=== PATIENT | male | born 1955 | race Caucasian/White ===

== ENCOUNTER → 2017-07-12 19:33 | Outpatient (CLI) | payer OTHER, SELFPAY ==
[2017-07-12 20:03] LABS: Erythrocyte Sedimentation Rate 1 mm/hr (0-20)
[2017-07-12 20:16] LABS: CRP < 2.90 mg/L (0.0-3.0)
[2017-07-12 20:17] LABS: Vitamin B12 385 pg/mL (211-911)
== END ==
PROVIDERS: Family Provider Family Medicine; PCP Family Medicine; Visit Provider Family Medicine
DX: R42 Dizziness and giddiness (principal); E55.9 Vitamin D deficiency, unspecified
CPT/HCPCS: 82306; 82607; 84403; 85652; 86140

== ENCOUNTER → 2017-07-27 10:39 | Outpatient (CLI) | payer OTHER, SELFPAY ==
--- NOTE | 2017-07-27 10:42 | CDU_ITS ---
Reason For Study: DIZZINESS Rt. Velocities/BP Lt. Velocities/BP Prox CCA 132.0/24.4 cm/sec. Prox CCA 114.0/18.2 cm/sec. Mid CCA 125.0/21.2 cm/sec. Mid CCA 102.0/19.3 cm/sec. Dist CCA 101.0/18.9 cm/sec. Dist CCA 112.0/20.5 cm/sec. Prox ICA 62.1/13.4 cm/sec. Prox ICA 62.7/21.7 cm/sec. Mid ICA 53.0/17.2 cm/sec. Mid ICA 82.1/27.6 cm/sec. Dist ICA 67.6/21.6 cm/sec. Dist ICA 91.5/24.6 cm/sec. Rt. ICA/CCA = .54. Lt. ICA/CCA = .90. Prox ECA 119.0/19.6 cm/sec. Prox ECA 114.0/17.6 cm/sec. Rt. Vert. 42.8/13.0 cm/sec. Lt. Vert. 41.6/15.2 cm/sec. Right Extracranial There is intimal thickening but no significant atherosclerotic plaque noted in the right common carotid artery. There is intimal thickening but no significant atherosclerotic plaque noted in the right internal carotid artery. There is no significant atherosclerotic plaque noted in the right external carotid artery. Antegrade flow is noted in the right vertebral artery. There is heterogeneous, smooth atherosclerotic plaque noted in the right bulb. Left Extracranial There is intimal thickening but no significant atherosclerotic plaque noted in the left common carotid artery. There is intimal thickening but no significant atherosclerotic plaque noted in the left internal carotid artery. There is no significant atherosclerotic plaque noted in the left external carotid artery. Antegrade flow is noted in the left vertebral artery. Procedure Carotid Duplex [id number]. Exam performed in department. Interpretation Summary No significant atherosclerotic plaque or stenosis noted in the internal carotid arteries bilaterally. Flow within the vertebral arteries is antegrade bilaterally. Ordering Physician: Jimbo Dean Referring Physician: Jimbo Dean Performed By: Carrol Campbell RVT
== END ==
PROVIDERS: Family Provider Family Medicine; PCP Family Medicine; Visit Provider Family Medicine
DX: R42 Dizziness and giddiness (principal)
CPT/HCPCS: 93880

== ENCOUNTER → 2017-10-31 17:13 | Outpatient (CLI) | payer SELFPAY ==
[2017-10-31 17:44] LABS: Erythrocyte Sedimentation Rate 1 mm/hr (0-20)
[2017-10-31 17:53] LABS: CRP < 2.90 mg/L (0.0-3.0)
== END ==
DX: M06.4 Inflammatory polyarthropathy (principal)
CPT/HCPCS: 85652; 86140

== ENCOUNTER → 2018-04-09 12:26 | Outpatient (CLI) | payer OTHER, SELFPAY ==
[2018-04-09 12:46] LABS: Erythrocyte Sedimentation Rate 3 mm/hr (0-20)
[2018-04-09 13:03] LABS: CRP < 2.90 mg/L (0.0-3.0)
== END ==
PROVIDERS: Family Provider Family Medicine; PCP Family Medicine
DX: M06.4 Inflammatory polyarthropathy (principal)
CPT/HCPCS: 85652; 86140

== ENCOUNTER → 2020-06-01 09:45 | Outpatient (CLI) | payer OTHER, SELFPAY ==
--- NOTE | 2020-06-01 16:25 | RAD_ITS ---
STUDY: X-RAY - ABDOMEN/PELVIS REASON FOR EXAM: Male, 64 years old. abdominal pain right side goes around to posterior TECHNIQUE: AP supine and upright views of the abdomen and pelvis. COMPARISON: None. FINDINGS: Normal visualized lung bases. There is an unremarkable bowel gas pattern. There is no demonstrated free abdominal air. The visualized liver, spleen and kidneys are grossly normal in size and morphology. Normal soft tissue structures. Normal visualized osseous structures. RAD/Abd Inc Decub and/or Erect IMPRESSION: No definite acute or significant abnormality seen. Electronically Signed: Arsen Lemos MD at 17:16 EST , Service support ,
[2020-06-01 18:03] LABS: Absolute Lymphocyte Count 1.34 X10^3/uL (0.83-4.51); Absolute Neutrophil Count 3.2 X10^3/uL (2.0-7.7); Basophil# 0.04 X10^3/uL; Basophil% 0.8 % (0-1); Eosinophil# 0.17 X10^3/uL; Eosinophils% 3.2 % (0-5); Hematocrit 45.1 % (40-54); Hemoglobin 15.5 g/dL (13.0-16.5); Lymphocyte # 1.34 X10^3/ul (4.0); Lymphocyte % 25.4 % (19-41); Mean Corp Hgb Conc 34.4 g/dL (32-36); Mean Corpuscular Hgb 31.5 pg (27.0-32.0); Mean Corpuscular Volume 91.7 fL (80-94); Mean Platelet Vol. 10.6 fl (6.2-12.0); Monocyte# 0.52 X10^3/uL; Monocyte% 9.8 % (0-10); NRBC Flagged by Analyzer 0 % (0-5); Neutrophil % 60.6 % (47-70); Platelet Count 271 K/mm3 (150-450); RBC Distribution Width CV 12.8 % (11.6-14.6); Red Blood Count 4.92 M/mm3 (4.6-6.2); White Blood Count 5.3 K/mm3 (4.4-11.0)
[2020-06-01 18:18] LABS: Erythrocyte Sedimentation Rate 7 mm/hr (0-20)
[2020-06-01 18:31] LABS: ALB/GLOB Ratio 1.3 RATIO (0.9-2.4); AST(SGOT) 26 U/L (15-37); Alanine Aminotransfer ALT/SGPT 42 U/L (16-61); Albumin, Serum 3.9 g/dL (3.2-5.0); Alkaline Phosphatase 81 U/L (45-117); Anion Gap 7 (5-15); BUN 19 mg/dL (7-18); BUN/Creat Ratio 15.7 RATIO (10-20); Calcium,Total 9.1 mg/dL (8.5-10.1); Chloride 106 mmol/L (98-107); Creatinine, Serum 1.21 mg/dL (0.70-1.30); EST Glomerular Filtration Rate 64 mL/min (>60); Est Glom Filt Rate - Afr Amer 77 mL/min (>60); Globulin 3.1 g/dL (2.2-4.2); Glucose 92 mg/dL (74-106); Potassium 4.1 mmol/L (3.5-5.1); Sodium Level 139 mmol/L (136-145)
[2020-06-04 03:07] LABS: Almond <0.10 kU/L (Class 0); Apple <0.10 kU/L (Class 0); Banana <0.10 kU/L (Class 0); Barley, Whole Grain <0.10 kU/L (Class 0); Beef <0.10 kU/L (Class 0); Brazil Nut <0.10 kU/L (Class 0); Carrot <0.10 kU/L (Class 0); Cashew <0.10 kU/L (Class 0); Chicken <0.10 kU/L (Class 0); Clam <0.10 kU/L (Class 0); Codfish <0.10 kU/L (Class 0); Corn <0.10 kU/L (Class 0); Egg, White <0.10 kU/L (Class 0); Egg, Whole <0.10 kU/L (Class 0); Egg, Yolk <0.10 kU/L (Class 0); Garlic <0.10 kU/L (Class 0); Gluten <0.10 kU/L (Class 0); Hazelnut/Filbert <0.10 kU/L (Class 0); Milk (Cow) 0.14 kU/L (Class 0/I); Oat <0.10 kU/L (Class 0); Onion <0.10 kU/L (Class 0); Orange <0.10 kU/L (Class 0); Pea <0.10 kU/L (Class 0); Peanut <0.10 kU/L (Class 0); Pecan <0.10 kU/L (Class 0); Pork <0.10 kU/L (Class 0); Potato, White <0.10 kU/L (Class 0); Rice <0.10 kU/L (Class 0); SCALLOP <0.10 kU/L (Class 0); SESAME SEED <0.10 kU/L (Class 0); Salmon <0.10 kU/L (Class 0); Shrimp <0.10 kU/L (Class 0); Soybean <0.10 kU/L (Class 0); Strawberry <0.10 kU/L (Class 0); Tomato <0.10 kU/L (Class 0); Tuna <0.10 kU/L (Class 0); Walnut, (Food) <0.10 kU/L (Class 0); Wheat <0.10 kU/L (Class 0); Yeast <0.10 kU/L (Class 0)
[2020-06-04 08:18] LABS: Turkey <0.10 kU/L (Class 0)
== END ==
PROVIDERS: PCP Family Medicine; Referring Provider Otolaryngology Otolaryngology/Facial Plastic Surgery; Visit Provider Otolaryngology Otolaryngology/Facial Plastic Surgery
DX: T78.40XA Allergy, unspecified, initial encounter (principal); R10.9 Unspecified abdominal pain
CPT/HCPCS: 36415; 74019; 80053; 85025; 85652; 86003; 87086; 87088

== ENCOUNTER → 2024-09-09 | Outpatient (CLI) | payer OTHER, SELFPAY ==
--- NOTE | 2024-09-09 07:43 | EKG12_ITS ---
Test Reason : PRE OP Blood Pressure : */* mmHG Vent. Rate : 56 BPM Atrial Rate : 56 BPM P-R Int : 188 ms QRS Dur : 78 ms QT Int : 428 ms P-R-T Axes : 65 54 57 degrees QTcB Int : 413 ms Sinus bradycardia Otherwise normal ECG Confirmed by BRISEYDA BRAVO, EDVIN ([id number]), fashion editor DEBORAH OLMEDO ([id number]) on 09/09/2024 11:42:02 AM Referred By: [employer]una Confirmed By: EDVIN RAIN MD
[2024-09-09 08:52] LABS: Hematocrit 42.9 % (40-54); Hemoglobin 14.3 g/dL (13.0-16.5); Mean Corp Hgb Conc 33.3 g/dL (32-36); Mean Corpuscular Hgb 30.6 pg (27.0-32.0); Mean Corpuscular Volume 91.7 fL (80-94); Platelet Count 321 K/mm3 (150-450); RBC Distribution Width SD 43.6 fl (35.1-43.9); Red Blood Count 4.68 M/mm3 (4.6-6.2); White Blood Count 5.1 K/mm3 (4.4-11.0)
[2024-09-09 09:54] LABS: Anion Gap 15 (5-15); BUN 16 mg/dL (4-19); BUN/Creat Ratio 14.2 RATIO (10-20); Carbon Dioxide 18.2 mmol/L (21.0-32.0); Chloride 107 mmol/L (98-108); Creatinine, Serum 1.14 mg/dL (0.70-1.20); EST Glomerular Filtration Rate 69 (>60); Glucose 129 mg/dL (70-99); Sodium Level 140 mmol/L (133-145)
== END | disposition home or self-care (01) ==
PROVIDERS: PCP Family Medicine; Referring Provider Otolaryngology; Visit Provider Otolaryngology
DX: Z01.810 Encounter for preprocedural cardiovascular examination (principal); Z01.812 Encounter for preprocedural laboratory examination
CPT/HCPCS: 36415; 80048; 85027; 93005

== ENCOUNTER 2025-01-21 07:30 | Outpatient (RCR) | payer OTHER, SELFPAY ==
--- NOTE | 2024-12-04 12:18 | HP.PTEVAL ---
Patient's Visit Information Visit Information Visit Information: BERNY WOLF is a 69 year old M referred to Physical Therapy by Dr. Shiva Oro, DO with a diagnosis of STAIN OF MUSCLE/FASCIA/TENDON LONG HEAD BICEP,IMPINGEMENT RIIGHT SHOULDER. Date of Evaluation: 12/04/24 Physical Therapist: Jordan Alonso, PT, Cert MDT, OCS Visit Plan Frequency: 2x /Week Duration: 4 Weeks Plan: * long head torn * PT INTERVENTIONS RTC/SCAPULAR STRENGTHENING ,POSTURAL EX'S AND MODALITIES Subjective Subjective: This 69 y/o male presents to physical therapy with right shoulder pain ~ 1 year. Patient was twisting arm ~ 1 year and racquet ~ 3 weeks had a sharp pain. Patient seen Dr Dean referred to Dr Oro . imaging had x-rays , showed spur. NO MRI. Medication naproxen tried cortisone injection. Aggravating factors OH and lifting ,ADLS above 90 degrees . Alleviating rest ,medication ,ice. Patient denies denies paresthesia /tingling. Patient pain affects sleeping. Patient pain affects QOL and function /hobbies. Goals to play [employer] ,bike. HOBBIES.LEISURE: casino gaming worker ,bike ,racquetball SOCAIL: VOACTION : retired teacher Pain Right: Pain Intensity (Out of 10): 3 Pain Intensity Range: 10 Comment: activity Objective Objective: POSTURE: mild forward posture PALPATION: tender long biceps tender NEURO: denies paresthesia/tingling ,reflexes NT OBSERVATION: jesus deformity AROM: shoulder flexion 160 flexion,abduction 150 degrees ,ER 90 ,IR T1 MMT: ( peak force) infraspinatus 9.0 , subscapularis 11.2 ,supraspinatus 13.8 ,deltoid 19.9 ,biceps 4/5 . Special Tests R Shoulder Drop Sign - IS Test: Negative R Shoulder Martin Evan - Impingement: Positive Comments: long head torn Balance/Special Test Scores Quick DASH Score: 31.8175 Goals Goal 1:: Patient to be I with HEP for shoulder Goal Time Frame: 4-6 Weeks Goal 2:: Patient to demonstrate 50% improvement with less pain and improved function Goal Time Frame: 4-6 Weeks Goal 3:: Plan to improve peak force RTC and deltoid 5 # to improve function and ADL's Goal Time Frame: 4-6 Weeks Goal 4:: Patient to improve shoulder oswestry score by 5 points to improve QOL Goal Time Frame: 4-6 Weeks Goal 5:: Patient to return to prior level of function and ADL's racquetball possible Goal Time Frame: 4-6 Weeks Rehabilitation Potential Physical Therapy Diagnosis: This patient has long head bicep tear with pain with pain ,decrease strength ,impairs ADL's and OH activities ,playing racquetball thus benefit from skilled PT Rehabilitation Potential: Good Anticipated Interventions Patient/Client Instruction: Educate patient on: Condition and Plan of Care For the Purpose of:: To decrease pain, To increase ROM, To improve muscle performance and motor function, To improve ability to perform ADL's, To increase tolerance to activity/condition/position, To improve performance and independence with ADL's, To improve ability of physical actions for home/community/work/leisure, To improve health of tissue, To decrease soft tissue restriction, To increase flexibility/ROM, To reduce risk of recurrence, To improve health and function and To improve tolerance to ADL's Therapeutic Exercise to Include: Strength training, Postural training, Flexibilty training, Active ROM and Scapular Strength/Stabilization Comment: RTC /SCAPULAR For the Purpose of:: To decrease pain, To increase ROM, To improve muscle performance and motor function, To increase tolerance to activity/condition/position, To improve performance and independence with ADL's, To improve ability of physical actions for home/community/work/leisure, To improve health of tissue, To decrease soft tissue restriction and To improve tolerance to ADL's TENS: Yes IF ES: Yes Cryotherapy (ice pack, ice massage): Yes Thermo therapy (hot pack): Yes Ultrasound (thermal/non thermal): Yes For the Purpose of:: To decrease pain, To increase ROM, To improve muscle performance and motor function, To increase tolerance to activity/condition/position, To improve health of tissue and To decrease soft tissue restriction Text: Thank you for the opportunity to evaluate your patient. For Medicare and Medicare HMO plans, please review the plan of care and approve it. It will need to be FAXED BACK to us at [phone] for Medicare purposes. For Medicare only, by signing this I certify the plan of care. Please let me know if there are questions or concerns regarding this plan of care. Physician Signature: Date:
--- NOTE | 2025-01-21 08:02 | HP.PTDCSUM ---
Discharge Summary D/C summary: It has been my pleasure to treat BERNY WOLF referred by Dr. Shiva Oro DO, with the diagnosis of STAIN OF MUSCLE/FASCIA/TENDON LONG HEAD BICEP,IMPINGEMENT RIIGHT SHOULDER for a total of 8 visit(s). Discharge Date: 01/21/25 Please see the following information for a summary of their discharge status. Subjective Subjective: Doing well played -racquetball is well no pain Pain Right: Pain Intensity (Out of 10): 0 Overall Improvement % Improvement: 90 Objective Objective/Function: Objective: POSTURE: mild forward posture PALPATION: tender long biceps tender NEURO: denies paresthesia/tingling ,reflexes NT OBSERVATION: jesus deformity AROM: shoulder flexion 170 flexion,abduction 165 degrees ,ER 90 ,IR T1 MMT: ( peak force) infraspinatus 19.8 , subscapularis 29..2 ,supraspinatus 17.8 ,deltoid 19.9 ,biceps 4/5 . Goals Goal 1:: Patient to be I with HEP for shoulder Goal Progress: Goal Met Goal 2:: Patient to demonstrate 50% improvement with less pain and improved function Goal Progress: Goal Met Goal 3:: Plan to improve peak force RTC and deltoid 5 # to improve function and ADL's Goal Progress: Goal Met Goal 4:: Patient to improve shoulder oswestry score by 5 points to improve QOL Goal Progress: Goal Met Goal 5:: Patient to return to prior level of function and ADL's racquetball possible Goal Progress: Goal Met Plan Plan: d/c to HEP D/C Information Discharge Comments: HEP d/c sentence: If there are questions or concerns regarding this patient's physical therapy, please feel free to call me at [phone]. Thank you for the referral of this patient. Sincerely, Jordan Alonso, PT, Cert MDT, OCS Balance/Gait/Functional tests Balance/Special Test Scores Quick DASH Score: 4.5450 Improvement % Improvement: 90
== END 2025-01-21 13:04 | disposition home or self-care (01) ==
LOC: PT 07:30
PROVIDERS: PCP Family Medicine; Referring Provider Student in an Organized Health Care Education/Training Program; Visit Provider Student in an Organized Health Care Education/Training Program
DX: S46.111D Strain of muscle, fascia and tendon of long head of biceps, right arm, subsequent encounter (principal); M75.41 Impingement syndrome of right shoulder
CPT/HCPCS: 97110; 97162; 97530

== ENCOUNTER 2025-04-16 09:00 | Outpatient (RCR) | payer OTHER, SELFPAY ==
--- NOTE | 2025-03-05 10:30 | HP.PTEVAL ---
Patient's Visit Information Visit Information Visit Information: BERNY WOLF is a 69 year old M referred to Physical Therapy by Dr. Jimbo Dean MD with a diagnosis of dizzyness. Date of Evaluation: 03/05/25 Physical Therapist: Eduardo Headley, DPT, OCS, CSCS Visit Plan Frequency: 1-2x /Week Duration: 4-6 Weeks Plan: 1-2x/week for 4-6 weeks as needed for IE HEP VOR H and V 60 sec seated 6x/day with pics, continue UT stretch 30" 4x daily and c/s retraction 10x2x/day adn bring ceervical collar for review next session. Treat initially with progression of VOR and head movement ex, if not helpful after 2 weeks then consider STM, US, MH, traction and neck strength. Subjective Subjective: For years has had dizzyness. Many tests for seizures, ENT and no reason. has tightness in neck most times and 4-5 years. Dizzyness= brain fog and pressure in neck and forehead and ears. No spinning. Activit including [email or web address] is normal adn it helps to play these things. Started 4 years ago or so. Saw [facility] a while ago for stretching of neck and they helped. Still stretches: UT stretch, c/s retraction. They help for a little while. Neck is always stiff in am. Dizzy feeeling is constant for years. Takes flonase for the pressure and not sure if it helps. No arm symptoms. Activities: mostly normal. Feels like he has to be careful with walking. Feels off at times. No pattern noted. Sleeping is OK. Generally not dizzy lying down at night. 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 Objective Objective: Walks into PT I, trasnfeers chair and beed I, steps reeciprocal without rail. - B hallpike kennedy, - roll test. cervical aROM 55 ext with pinch adn increased dizzyness, rotation 60 B without problems, stiff in SB B L>R. UE aROM WFL and normal strength 4/5 no myotomal abnormalities. - c/s compression. Oculomotor:no nystagmus with gaze or head shake but head shake eo adn ec increases symptoms slightly for short duration. - ocular tilt - skew eye deviation - head thrust DVA 4 lines from SVA Purusit is normal, saccades normal with slight symptoms. 5/10 dizzyness with VOR seateed H for 25 seconds. Baseline is 3/10, V is 6/10 for 20-25 sec. VOR walking creeates symtpoms looking up sitting creates symptoms. sitting up from HD B quick symptoms Balance/Special Test Scores Functional Gait Assessment Score: 30 % Disability: 0 CATSIB Score (Max score 120 seconds): 120 Dizziness Score: 18 Goals Goal 1:: overall dizzy foggy feeling intermittent and 1/10 at worst with 75% improvement. Goal Time Frame: 4-6 Weeks Goal 2:: Look up without dizzyness or neck pain Goal Time Frame: 4-6 Weeks Goal 3:: I appropriate mgmt of condition Goal Time Frame: 4-6 Weeks Rehabilitation Potential Physical Therapy Diagnosis: dizzy foggy symptoms with head movements making hesitant to do certain activities. Rehabilitation Potential: Questionable Anticipated Interventions Patient/Client Instruction: Educate patient on: Condition and Plan of Care For the Purpose of:: To improve nutrient delivery to tissue, To improve muscle performance and motor function and To increase tolerance to activity/condition/position Therapeutic Exercise to Include: Strength training, Postural training, Flexibilty training, Passive ROM and Active ROM Comment: adaptation, vestibu ex For the Purpose of:: To improve muscle performance and motor function, To increase tolerance to activity/condition/position and To improve ability of physical actions for home/community/work/leisure Manual Therapy Techniques to Include: Mobilization, Passive ROM and Soft tissue mobilization For the Purpose of:: To decrease pain, To increase ROM, To improve nutrient delivery to tissue and To increase tolerance to activity/condition/position Ultrasound (thermal/non thermal): Yes For the Purpose of:: To improve nutrient delivery to tissue Text: Thank you for the opportunity to evaluate your patient. For Medicare and Medicare HMO plans, please review the plan of care and approve it. It will need to be FAXED BACK to us at [phone] for Medicare purposes. For Medicare only, by signing this I certify the plan of care. Please let me know if there are questions or concerns regarding this plan of care. Physician Signature: Date:
--- NOTE | 2025-04-16 10:04 | HP.PTDCSUM ---
Discharge Summary D/C summary: It has been my pleasure to treat BERNY WOLF referred by Dr. Jimbo Dean MD, with the diagnosis of dizzyness for a total of 9 visit(s). Discharge Date: 04/16/25 Please see the following information for a summary of their discharge status. Subjective Subjective: Overall dizzyneess has beeen worse adn may be getting less severe over the years and is improved with the exercise. Ex 60% better. Life [id number] Neck still constantly stiff. mroning stiffness evn know got pillow. some days stiffness is better. Pain neck: Pain Intensity (Out of 10): Unrated Overall Improvement % Improvement: 10 Objective Objective/Function: 60 r rotation, 55 L rotation with stiffness at nd range, 60 ext with stiffness, no pain or dizzyness today. Goals Goal 1:: overall dizzy foggy feeling intermittent and 1/10 at worst with 75% improvement. Goal Progress: 10% Goal 2:: Look up without dizzyness or neck pain Goal Progress: stiff Goal 3:: I appropriate mgmt of condition Goal Progress: Goal Met Plan Plan: d/c D/C Information d/c sentence: If there are questions or concerns regarding this patient's physical therapy, please feel free to call me at [phone]. Thank you for the referral of this patient. Sincerely, Eduardo Headley, DPT, OCS, CSCS Balance/Gait/Functional tests Balance/Special Test Scores Functional Gait Assessment Score: 30 % Disability: 0 CATSIB Score (Max score 120 seconds): 120 Dizziness Score: 10 Improvement % Improvement: 10
== END 2025-04-16 19:00 | disposition home or self-care (01) ==
LOC: PT 09:00
PROVIDERS: PCP Family Medicine; Referring Provider Family Medicine; Visit Provider Family Medicine
DX: H81.10 Benign paroxysmal vertigo, unspecified ear (principal)
CPT/HCPCS: 97110; 97140; 97161; 97164; 97530